=== PATIENT | male | born 1960 | race Caucasian/White ===

== ENCOUNTER → 2022-01-21 | Outpatient (CLI) | payer OTHER ==
--- NOTE | 2022-01-21 16:42 | RAD ---
EXAM: Bilateral feet 2 views. HISTORY: Chronic bilateral foot pain. COMPARISON: None. FINDINGS: On the left, and osseous density measuring 8 x 7 mm projects over the inferior aspect of th e talar neck. This may reflect the talar bone island or loose body in the sinus tarsi. No fractures are identified on the left. There is a small plantar calcaneal spur. There is mild tarso metatarsal osteoarthritis for patient age. Alignment is maintained. On the right, there is a chronic healed lateral malleolar fracture. Tarsometatarsal osteoarthritis is mild for patient age. No fractures are identified. Alignment is maintained. IMPRESSION: 1. 8 mm left talar bone island, versus a loose body within the sinus tarsi. Correlate for associated symptoms. 2. 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 Electronically signed by: Minor Mora MD (01/21/2022 4:39 PM) [id number]
== END ==
LOC: RAD 10:45
PROVIDERS: ATTEND Physician Assistant
DX: M19.071 Primary osteoarthritis, right ankle and foot (principal); M19.072 Primary osteoarthritis, left ankle and foot; M77.32 Calcaneal spur, left foot; M89.8X7 Other specified disorders of bone, ankle and foot
CPT/HCPCS: 73620-50